=== PATIENT | female | born 1950 | race Caucasian/White ===

== ENCOUNTER 2017-12-03 08:15 | Inpatient (IN) | payer OTHER ==
[~2017-12-03] VITALS: Ht 165.1 cm; Wt 61.2 kg
[2017-12-03] MEDS ORDERED: VERAPAMIL ER240 MG PO (13:06)
[2017-12-03] MEDS ORDERED: LYRICA150 MG PO (13:06)
[2017-12-03] MEDS ORDERED: LOSARTAN POTAS100 MG PO (13:06)
[2017-12-03] MEDS ORDERED: TEMAZEPAM30 MG PO (13:07)
[2017-12-03] MEDS ORDERED: ELAVIL (13:08)
[2017-12-03] MEDS ORDERED: ZANTAC300 MG PO (13:09)
[2017-12-03] MEDS ORDERED: TRAMADOL HCL50 MG PO (13:09)
[2017-12-12] MEDS ORDERED: XARELTO10 MG PO (18:18)
[2017-12-12] MEDS ORDERED: DUI500 PO (18:18)
[2017-12-12] MEDS ORDERED: PERCOCET 5-3251 EACH PO (18:18)
== END 2017-12-12 18:52 | DRG 470 ==
LOC: O/R 12-10 07:09 → SURH 12-10 07:09
PROVIDERS: Orthopaedic Surgery
PROC: 0QNF0ZZ Release Left Patella, Open Approach (ICD-10-PCS; 2017-12-10)
PROC: 0SRD0J9 Replacement of Left Knee Joint with Synthetic Substitute, Cemented, Open Approach (ICD-10-PCS; principal; 2017-12-10 10:15)
DX: M17.12 Unilateral primary osteoarthritis, left knee (principal); D62 Acute posthemorrhagic anemia; M81.0 Age-related osteoporosis without current pathological fracture; M22.12 Recurrent subluxation of patella, left knee; I12.9 Hypertensive chronic kidney disease with stage 1 through stage 4 chronic kidney disease, or unspecified chronic kidney disease; N18.3 Chronic kidney disease, stage 3 (moderate)

== ENCOUNTER → 2018-06-11 | Emergency (ER) | payer OTHER ==
[~2018-06-11] MED LIST: DUI500 PO; ELAVIL; LOSARTAN POTAS100 MG PO; LYRICA150 MG PO; PERCOCET 5-3251 EACH PO; TEMAZEPAM30 MG PO; TRAMADOL HCL50 MG PO; VERAPAMIL ER240 MG PO; XARELTO10 MG PO; ZANTAC300 MG PO
== END | disposition left against medical advice (07) ==
LOC: ER 17:11
DX: Z53.21 Procedure and treatment not carried out due to patient leaving prior to being seen by health care provider (principal)